=== PATIENT | female | born 1990 | race Two or more races ===

== ENCOUNTER 2016-05-08 14:39 | Emergency (ER) | payer OTHER ==
[~2016-05-08] VITALS: Ht 165.1 cm; Wt 63.5 kg
[2016-05-08 14:55] VITALS: BP 135/82
[2016-05-08] MEDS ORDERED: KETOROLAC TROMETHAMINE INJ 60 MG/2 ML VIAL IM ONE (15:30)
[2016-05-08] MEDS ORDERED: KETOROLAC TROMETHAMINE INJ 30 MG/ML VIAL ONE (16:36)
== END 2016-05-08 17:56 | disposition home or self-care (01) ==
LOC: ER 14:51
DX: S50.812A Abrasion of left forearm, initial encounter (principal); S50.811A Abrasion of right forearm, initial encounter; M79.651 Pain in right thigh; V03.90XA Pedestrian on foot injured in collision with car, pick-up truck or van, unspecified whether traffic or nontraffic accident, initial encounter; Y93.89 Activity, other specified; Y92.413 State road as the place of occurrence of the external cause; Y99.8 Other external cause status
CPT/HCPCS: 73551; 84703; 96372; 99284; A4606; J1885; Z7610; 73550-TC